=== PATIENT | female | born 1960 | race African-American/Black ===

== ENCOUNTER → 2018-10-19 | Outpatient (CLI) | payer OTHER | LOC: ZCOL.LAB 15:31 | DX: J32.4 Chronic pansinusitis (principal) ==

== ENCOUNTER 2018-11-25 12:33 | Day surgery (SDC) | payer OTHER ==
[~2018-11-25] VITALS: Ht 172.7 cm; Wt 99.0 kg
[2018-11-25] VITALS (14 sets, daily range): BP systolic 93–143; BP diastolic 68–101; PULSE 65–85; TEMP 97.4–97.9
[2018-11-25 13:21] LABS: HEMATOCRIT 45.3 % (37.0-47.0); MEAN CELL VOLUME 92 fl (80.0-100.0); MEAN CORPUSCULAR HEMOGLOBIN 31 pg (27.0-31.0); MEAN CORPUSCULAR HGB CONC 33 g/dl (33.0-37.0); PLATELET COUNT 203 K/mm3 (130-400); RED BLOOD COUNT 4.91 M/mm3 (4.10-5.30); REDCELL DISTRIBUTION WIDTH-CV 12.9 % (11.5-14.5)
[2018-11-25 13:29] LABS: INR 1.1 (0.8-3.0); PROTHROMBIN TIME 12.9 SECONDS (9.7-12.8)
[2018-11-25 13:30] LABS: CALCIUM 9.9 mg/dL (8.4-10.2); CREATININE, serum 0.83 (0.52-1.25); POTASSIUM 4.1 mmol/L (3.4-5.0)
[2018-11-25] MEDS ORDERED: NAPROSYN500 MG PO (13:42)
[2018-11-25] MEDS ORDERED: PREMARIN .3MG0.3 MG PO (13:42)
[2018-11-25] MEDS ORDERED: SYNTHROID0.112 MG/T PO (13:43)
[2018-11-25] MEDS ORDERED: TOPROL XL 25MG25 MG PO (13:43)
[2018-11-25] MEDS ORDERED: ENTRESTO 24 MG1 EACH PO (13:44)
[2018-11-25] MEDS ORDERED: CHLOR TRIMETON 44 MG PO (13:45)
[2018-11-25] MEDS ORDERED: CENTRUM SILVER1 CTB PO (13:46)
[2018-11-25] MEDS ORDERED: SINGULAIR 110 MG/TAB PO (13:46)
[2018-11-25] MEDS ORDERED: VITAMIN D31000 I1 PO (13:46)
[2018-11-25] MEDS ORDERED: CRESTOR5 MG PO (13:47)
[2018-11-25] MEDS ORDERED: THE MEDICINE S200 M2 PO (13:48)
--- NOTE | 2018-11-25 15:11 | NUR ---
SEE MERGE REPORT FOR MEDICATION ADMINISTRAION AND INTRA/POST SEDATION ASSESSMENTS.
--- NOTE | 2018-11-25 19:14 | NUR ---
Pt report some dizziness with getting up to toilet.BP checked VS documented.Patient back to bed,reports dizziness gone with laying down.Dressing still with scant drainage,paremeters marked,soft to touch,no swelling at site.
--- NOTE | 2018-11-25 19:19 | NUR ---
Discharge instructions given to pt.Pt verbalizes understanding.
--- NOTE | 2018-11-25 19:42 | NUR ---
Patient sat up to dress at 1929.After a few minutes pt reports dizziness and need to lay down again.BP 93/69,pulse 76, RR 16, 100% on room air.This nruse called to report findings to Dr Liz.Order to admit to medical received.Engineering Intern notified.
--- NOTE | 2018-11-25 20:13 | NUR ---
Pt transferred to Medical,Room 318.Report to Kenneth Díaz.
--- NOTE | 2018-11-25 20:30 | NUR ---
Arrived from express unit. Assessment complete. Lungs clear. Heart sounds normal. Bowels active x4. Pulses strong throughout. Right femoral site has blood present on gauze, no change from marked areas from Express unit. Will monitor. Denies pain. Orientated to medical floor and room. Denies needs. Call light in reach.
--- NOTE | 2018-11-25 20:57 | NUR ---
Communication with Dr Liz; Observation overnight; no further or new medication orders at this time per telephone communication; Plan to discharge in AM. CDA
[2018-11-26] VITALS: BP 106/77; PULSE 81; TEMP 98.3
--- NOTE | 2018-11-26 03:34 | NUR ---
PT resting well in bed; No visible or verbal complaints of pain; No visible worsening of right femoral insertion site (cardiac cath 11/25/18); PT resting in a comfortable position in bed with personal items and call light within reach; Spouse resting on window couch in room; Will continue to monitor. CDA
[2018-11-26 04:01] VITALS: BP 110/71; PULSE 77; TEMP 98.1
--- NOTE | 2018-11-26 06:37 | NUR ---
Report given to PATI Young; No significant changes or concerns at time of change of shift. CDA
[2018-11-26 08:13] VITALS: BP 115/76; PULSE 82; TEMP 97.5
--- NOTE | 2018-11-26 09:07 | NUR ---
Resting well this morning. The is at the bedside. No pain or needs reported. Plan to discharge home this morning. Some mild dizziness noted with bathroom breaks throughout the night. However, no dizzines so far this morning.
--- NOTE | 2018-11-26 10:30 | NUR ---
Discharged out at this time. here to transport home. DC instructions provided and the patient verbalized understanding. Printed DC instructions provided as well.
== END 2018-11-26 10:32 | disposition home or self-care (01) ==
LOC: COL.CAR 12:33 → MEDICAL 20:02 → COL.CAR 11-26 10:32
PROVIDERS: Internal Medicine Interventional Cardiology
DX: R07.9 Chest pain, unspecified (principal); R94.39 Abnormal result of other cardiovascular function study; M19.90 Unspecified osteoarthritis, unspecified site; I50.22 Chronic systolic (congestive) heart failure; I51.7 Cardiomegaly; Z82.49 Family history of ischemic heart disease and other diseases of the circulatory system
CPT/HCPCS: OP; J1644; J2250; J3010; Q9967

== ENCOUNTER 2020-08-06 14:00 | Outpatient (RCR) | payer OTHER ==
[2020-06-18 14:20] VITALS: BP 139/64; PULSE 65; TEMP 98.6
--- NOTE | 2020-06-18 15:20 | NUR ---
Pt has remained in dept following initial dosing of xolair without issue. Next appt time is provided, and pt is escorted out from dept.
[2020-07-02 14:00] VITALS: BP 113/69; PULSE 63; TEMP 98.2
[2020-07-23 14:00] VITALS: BP 112/72; PULSE 77; TEMP 98.3
[~2020-08-06] VITALS: Ht 172.7 cm; Wt 94.5 kg
[~2020-08-06 14:00] MED LIST: ALDACTONE 25MG25 M1 PO; AMOXICILLIN 8751 TAB PO; CENTRUM SILVER1 CTB PO; CHLOR TRIMETON 44 MG PO; CRESTOR5 MG PO; ENTRESTO 24 MG1 EACH PO; HAIRSKINNAILS PO; HCTZ 25MG TAB25 MG PO; MULTIVITAMIN FO1 CAP PO; NAPROSYN500 MG PO; PREMARIN .3MG0.3 MG PO; PREMPRO 0.3 MG-1 TAB PO; RT ADVAIR HFA 1112 G IH; SINGULAIR 110 MG/TAB PO; SYNTHROID0.112 MG/T PO; THE MEDICINE S200 M2 PO; TOPROL XL 25MG25 MG PO; VITAMIN D31000 I1 PO; ZYRTEC 10MG10 MG PO
[2020-08-06 14:49] VITALS: BP 111/66; PULSE 66; TEMP 98.2
[2020-08-06] MEDS ORDERED: VITAMIN C500 MG PO (14:49)
== END 2020-08-14 15:25 | disposition home or self-care (01) ==
LOC: EUO 14:00
DX: J45.50 Severe persistent asthma, uncomplicated (principal); Z79.899 Other long term (current) drug therapy
CPT/HCPCS: J2357

== ENCOUNTER → 2020-08-20 | Outpatient (RCR) | payer OTHER ==
[~2020-08-20] VITALS: Ht 172.7 cm; Wt 95.6 kg
[~2020-08-20] MED LIST changes: +MILLIPRED DP5 MG PO; +TESSALON P100 MG/CAP PO; +VITAMIN C500 MG PO
[2020-08-20 14:24] VITALS: BP 98/55; PULSE 59; TEMP 98.3
== END | disposition home or self-care (01) ==
LOC: EUO
DX: J45.50 Severe persistent asthma, uncomplicated (principal); Z79.899 Other long term (current) drug therapy

== ENCOUNTER 2020-10-01 14:00 | Outpatient (RCR) | payer OTHER ==
[2020-09-03 14:25] VITALS: BP 108/72; PULSE 65; TEMP 98.7
[2020-09-17 14:11] VITALS: BP 102/70; PULSE 60; TEMP 98.6
[~2020-10-01] VITALS: Ht 172.7 cm; Wt 94.7 kg
== END 2020-12-02 | disposition still patient (30) ==
LOC: EUO
DX: J45.50 Severe persistent asthma, uncomplicated (principal)